=== PATIENT | female | born 2000 | race Caucasian/White ===

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

== ENCOUNTER 2019-11-01 06:00 | Inpatient (IN) ==
[2019-11-01] MEDS ORDERED: D5 1/2 NS 1000 ML 1,000 ML IV ONE (06:39)
[2019-11-01] MEDS ORDERED: PITOCIN ONE (06:39)
[2019-11-01] MEDS ORDERED: BETADINE SOLN ONE (06:39)
[2019-11-01] MEDS ORDERED: LR 1000 ML IV 1,000 ML IV ONE (06:39)
[2019-11-01] MEDS ORDERED: D5 1/2 NS 1L W PITOCIN 20 UNITS/L 20 UNITS/1,000 ML BAG IV ONE (06:40)
[2019-11-01] MEDS ORDERED: D5LR 1L W PITOCIN 10 UNITS/L 10 UNITS/1,000 ML BAG IV ONE (06:40)
--- NOTE | 2019-11-01 07:02 | DR.OB ---
OB Quick Note - Assessment/Plan Assessment/Plan: L&D 11/01/19 at 6:55am S-No complaint. O-Afebrile,VSS ROL=015 with good LTV, +accel, no decel. CTX=none CVX=2cm/50%/-1/VTX AROM with clear fluid. IUPC and FSE placed. A-IUP at 40 1/7 weeks for induction P-Begin pitocin induction Anticipate
[2019-11-01] MEDS ORDERED: PHENERGAN INJ 25 MG IM PRN ×2 (07:11→15:50)
[2019-11-01] MEDS ORDERED: REGLAN INJ 10 MG VIAL IVP PRN (07:11)
[2019-11-01] MEDS ORDERED: D5 1/2 NS 1000 ML 1,000 ML IV SCH (07:11)
[2019-11-01] MEDS ORDERED: MORPHINE SULFATE INJ 2 MG INJ IVP PRN (07:11)
[2019-11-01] MEDS ORDERED: D5LR 1L W PITOCIN 10 UNITS/L 10 UNITS/1,000 ML BAG IV PRN (07:11)
[2019-11-01] MEDS ORDERED: NUBAIN INJ 200 MG VIAL MULTIDOSE IVP PRN (07:11)
[2019-11-01] MEDS ORDERED: PITOCIN IVP ONE (07:11)
[2019-11-01] MEDS ORDERED: STADOL INJ IVP PRN (09:50)
[2019-11-01] MEDS ORDERED: MORPHINE SULFATE INJ 2 MG INJ ONE (11:42)
--- NOTE | 2019-11-01 11:50 | DR.OB ---
OB Quick Note - Assessment/Plan Assessment/Plan: L&D 11/01/19 at 11:40am Pitocin=16mu/min. S-No complaint except pain with CTX. O-Afebrile,VSS EMA=820 with good LTV, +accel, no decel. CTX=q 1 1/2 to 2 min., about 45-55mmHg CVX=5cm/100%/0 A-IUP at 40 1/7 weeks for induction P-Cont. pitocin induction Anticipate
[2019-11-01] MEDS ORDERED: ZOFRAN INJ 4 MG VIAL ONE (12:29)
[2019-11-01] MEDS ORDERED: FENTANYL INJ 250 mcg ONE (12:52)
[2019-11-01] MEDS ORDERED: MOTRIN TAB 800 MG PO PRN ×2 (15:50→17:02)
--- NOTE | 2019-11-01 15:56 | DR.OB ---
OB Quick Note - Assessment/Plan Assessment/Plan: Delivery Note HUMAN RESOURCES TECHNICIAN 11/01/19 at 3:35pm Patient complete and pushing. Head delivered over intact perineum. No nuchal cord. Nose and mouth bulb suctioned. Body delivered over intact perineum. Cord clamped x 2 and cut. handed to attendant. Cord sent for gases. Placenta delivered spontaneously / intact / 3 vessel cord. No CVX / vaginal / perineal tears. Viable female infant, VTX/OA, wt=8'1" and 9/9, stable to NBN. Mother stable to RR. [id number]=[id number].
[2019-11-01] MEDS ORDERED: D5 1/2 NS 1000 ML 1,000 ML with PITOCIN 20 UNITS IV SCH ×2 (16:00)
[2019-11-01] MEDS ORDERED: ADACEL or BOOSTRIX TDaP VACCINE IM ONE (17:01)
[2019-11-01] MEDS ORDERED: MILK OF MAGNESIA PO PRN (17:01)
[2019-11-01] MEDS ORDERED: AMBIEN PO PRN (17:01)
[2019-11-01] MEDS ORDERED: DERMOPLAST PAIN RELIEF SPRAY TOP PRN (17:01)
[2019-11-02 04:05] LABS: HEMATOCRIT 32.6 % (36.0-47.0)
[2019-11-02] MEDS ORDERED: DEPO-PROVERA CONTRACEPTIVE INJ IM ONE (07:13)
[2019-11-02] MEDS ORDERED: PRENATAL PLUS PO SCH (09:00)
[2019-11-02 16:43] VITALS: BP 106/59
== END 2019-11-02 17:45 | disposition home or self-care (01) | DRG 807 ==
LOC: LD 06:33 → MED/SURG 17:14
PROVIDERS: ADMIT Specialist; ATTEND Specialist
DX: Z23 Encounter for immunization; Z37.0 Single live birth; Z3A.40 40 weeks gestation of pregnancy; O98.82 Other maternal infectious and parasitic diseases complicating childbirth
CPT/HCPCS: 36415; 59409; 80048; 80307; 81001; 85014; 85018; 85025; 86592; 86850; 86900; 86901; 90715; A4216; J0595; J1050; J2270; J2405; J2590; J3010; J7120; S0197; S5010

== ENCOUNTER 2024-03-15 06:30 | Inpatient (IN) ==
[2024-03-15] MEDS ORDERED: ZOFRAN INJ 4 MG VIAL IVP PRN (06:40)
[2024-03-15] MEDS ORDERED: NUBAIN INJ 20 MG AMP IVP PRN (06:40)
[2024-03-15] MEDS ORDERED: REGLAN INJ 10 MG VIAL IVP PRN (06:40)
[2024-03-15] MEDS: D5 1/2 NS 1,000 ML 1,000 ML IV SCH (06:45)
--- NOTE | 2024-03-15 07:08 | DR.OB ---
OB QUICK NOTE Assessment/Plan (1) Active labor at term: Assessment/Plan: L&D 03/15/24 at 7:00am S-No complaint. O-Afebrile,VSS CTV=540 with good LTV, +accel, no decel. CTX=none CVX=2cm/50%/-1/VTX AROM with clear fluid. IUPC and FSE placed. A-IUP at 39 1/7 weeks for induction GERD P-Begin pitocin induction Anticipate
[2024-03-15] MEDS: OXYTOCIN 20 UNIT/1,000 ML-NS 20 UNIT/1,000 ML PLAST..BAG IV PRN (07:10)
--- NOTE | 2024-03-15 12:10 | DR.OB ---
OB QUICK NOTE Assessment/Plan (1) Active labor at term: Assessment/Plan: L&D 03/15/24 at 12:05pm Pitocin=14mu/min. S-No complaint except pain with CTX. O-Afebrile,VSS UOI=029 with good LTV, +accel, no decel. CTX=q 1 1/2 min., about 50-65mmHg CVX=3cm/75%/-1/VTX A-IUP at 39 1/7 weeks for induction GERD P-Cont. pitocin induction Anticipate
[2024-03-15] MEDS: LR 1,000 ML IV 1,000 ML IV ONE ×2 (14:15→15:50)
[2024-03-15] MEDS: FENTANYL VIAL INJ 100 mcg ONE (14:45)
[2024-03-15] MEDS: NAROPIN EPIDURAL 0.2% 100 ML ONE (14:50)
[2024-03-15] MEDS: D5 1/2 NS 1,000 ML 1,000 ML IV ONE (16:19)
[2024-03-15] MEDS: BETADINE SOLN ONE (16:21)
[2024-03-15] MEDS: PITOCIN ONE (16:23)
--- NOTE | 2024-03-15 16:44 | DR.OB ---
OB QUICK NOTE Assessment/Plan (1) Active labor at term: Assessment/Plan: L&D 03/15/24 at 4:40pm Pitocin=20mu/min. S-No complaint. s/p epidural. O-Afebrile,VSS MQA=379 with good LTV, +accel, no decel. CTX=q 1 1/2 min., about 50-65mmHg CVX=8cm/90%/0 A-IUP at 39 1/7 weeks for induction P-Cont. pitocin induction Anticipate
[2024-03-15] MEDS: PITOCIN IVP ONE (18:02)
--- NOTE | 2024-03-15 18:20 | DR.OB ---
OB QUICK NOTE Assessment/Plan (1) Active labor at term: Assessment/Plan: Delivery Note ASSURANCE SENIOR 03/15/24 at 6:01pm Patient complete and pushing. Head delivered over intact perineum. Nuchal cord x 1 reduced. Nose and mouth bulb suctioned. Body delivered over intact perineum. Cord clamped x 2 and cut. Infant handed to attendant. Cord sent for gases. Placenta delivered spontaneously / intact / 3 vessel cord. No CVX / vaginal / perineal tears noted. Viable female delivered by , VTX/OA, wt=6'2" and 5/7/9, stable to NBN. Mother stable to RR. HLE=[id number].
[2024-03-15] MEDS: OXYTOCIN 20 UNIT/1,000 ML-NS 20 UNIT/1,000 ML PLAST..BAG IV SCH (19:15)
[2024-03-15] MEDS ORDERED: DERMOPLAST PAIN RELIEF SPRAY TOP PRN (20:57)
[2024-03-15] MEDS ORDERED: MOTRIN TAB 800 MG PO PRN (20:57)
[2024-03-15] MEDS ORDERED: MILK OF MAGNESIA PO PRN (20:57)
[2024-03-15] MEDS ORDERED: AMBIEN PO PRN (20:57)
[2024-03-15] MEDS: MOTRIN TAB 800 MG PO PRN (23:20)
[2024-03-16] MEDS ORDERED: ADACEL or BOOSTRIX TDaP VACCINE IM ONE (00:49)
[2024-03-16] MEDS: ADACEL or BOOSTRIX TDaP VACCINE IM ONE (00:59)
[2024-03-16 05:45] LABS: HEMOGLOBIN 9.9 g/dL (12.0-16.0)
[2024-03-16] MEDS: PROTONIX TAB 40 MG PO SCH (08:11)
[2024-03-16] MEDS: PRENATAL PLUS PO SCH (08:12)
[2024-03-16 09:27] VITALS: RESP 21
[2024-03-16 12:22] VITALS: TEMP 98.3
[2024-03-16] MEDS: DEPO-PROVERA CONTRACEPTIVE INJ IM ONE ×2 (14:56→15:06)
[2024-03-16 16:28] VITALS: BP 115/65; PULSE 87; O2SAT 100
== END 2024-03-16 20:10 | disposition home or self-care (01) | DRG 807 ==
LOC: LD 06:31 → MED/SURG 19:28
PROVIDERS: ADMIT Specialist; ATTEND Specialist